=== PATIENT | male | born 1995 | race American Indian/Alaskan Native ===

== ENCOUNTER 2021-07-05 17:07 | Emergency (ER) | payer SELFPAY | END 2021-07-05 20:00 | LOC: ED 17:07 | DX: N20.0 Calculus of kidney (principal); Z53.21 Procedure and treatment not carried out due to patient leaving prior to being seen by health care provider ==

== ENCOUNTER 2021-07-06 19:22 | Emergency (ER) | payer SELFPAY ==
[2021-07-06] MEDS ORDERED: IPRATROPIUM/ALBUTEROL SULFATE 3 ML AMPUL.NEB IH ONE (20:24)
== END 2021-07-06 21:00 | disposition left against medical advice (07) ==
LOC: ED 19:22
DX: N23 Unspecified renal colic (principal); Z53.21 Procedure and treatment not carried out due to patient leaving prior to being seen by health care provider

== ENCOUNTER 2021-07-14 13:56 | Emergency (ER) | payer SELFPAY ==
[2021-07-14 16:14] VITALS: BP 122/89
--- NOTE | 2021-07-14 17:32 | Emergency Department Report ---
ED General Adult HPI - General Chief complaint: Nosebleed Stated complaint: DEHYDRATION Time Seen by Provider: 07/14/21 16:17 Source: patient Mode of arrival: Ambulatory Limitations: No Limitations - History of Present Illness Initial comments: This is a 25-year-old male nontoxic, well nourished in appearance, no acute signs of distress presents to the ED with c/o of nosebleed intermittently times several days. Patient denies any trauma or injuries. Patient stated he needs IV fluids because he believes he is dehydrated due to this. Patient otherwise denies any complaints or symptoms. Currently denies any episodes of nosebleeds today. Patient denies any headache, stiff neck, nausea, vomiting, chest pain, shortness of breath, numbness or tingling. Patient denies any allergies or significant past medical history. -: days(s) Severity scale (0 -10): 0 Improves with: none Worsens with: none Associated Symptoms: denies other symptoms. denies: confusion, chest pain, cough, diaphoresis, fever/chills, headaches, loss of appetite, malaise, nausea/vomiting, rash, seizure, shortness of breath, syncope, weakness Treatments Prior to Arrival: none - Related Data Allergies Allergy/AdvReac Type Severity Reaction Status Date / Time No Known Allergies Allergy Unverified 07/14/21 16:10 ED Review of Systems ROS: Stated complaint: DEHYDRATION Other details as noted in HPI Comment: All other systems reviewed and negative Constitutional: denies: chills, fever Eyes: denies: eye pain, eye discharge, vision change ENT: epistaxis. denies: ear pain, throat pain, dental pain, hearing loss, congestion Respiratory: denies: cough, shortness of breath, wheezing Cardiovascular: denies: chest pain, palpitations Endocrine: no symptoms reported Gastrointestinal: denies: abdominal pain, nausea, diarrhea Genitourinary: denies: urgency, dysuria Musculoskeletal: denies: back pain, joint swelling, arthralgia Skin: denies: rash, lesions Neurological: denies: headache, weakness, paresthesias Psychiatric: denies: anxiety, depression Hematological/Lymphatic: denies: easy bleeding, easy bruising ED Past Medical Hx - Past Medical History Previous Medical History?: No - Surgical History Past Surgical History?: No ED Physical Exam - General Limitations: No Limitations General appearance: alert, in no apparent distress - Head Head exam: Present: atraumatic, normocephalic - Eye Eye exam: Present: normal appearance - ENT ENT exam: Present: normal exam, normal orophraynx, other (no epistaxis present. No nasal polyps or hematoma noted on exam.) - Neck Neck exam: Present: normal inspection, full ROM. Absent: lymphadenopathy - Respiratory Respiratory exam: Present: normal lung sounds bilaterally. Absent: respiratory distress, wheezes, rales, rhonchi, stridor, chest wall tenderness, accessory muscle use, decreased breath sounds, prolonged expiratory - Cardiovascular Cardiovascular Exam: Present: regular rate, normal rhythm, normal heart sounds. Absent: bradycardia, tachycardia, irregular rhythm, systolic murmur, diastolic murmur, rubs, gallop - Extremities Exam Extremities exam: Present: full ROM - Back Exam Back exam: Present: full ROM - Neurological Exam Neurological exam: Present: alert, oriented X3, normal gait - Psychiatric Psychiatric exam: Present: normal affect, normal mood - Skin Skin exam: Present: warm, dry, intact, normal color. Absent: rash ED Course Vital Signs 07/14/21 16:13 Temperature 98.8 F Pulse Rate 77 Respiratory 20 Rate Blood Pressure 122/89 O2 Sat by Pulse 99 Oximetry - Reevaluation(s) Reevaluation #1: 07/14/21 17:31 Patient is speaking in full sentences with no signs of distress noted. ED Medical Decision Making - Medical Decision Making 25-year-old male that presents with epistaxis. Patient is stable and was examined by me. Labs has been ordered but as per rn admission, patient was nowhere to be found. It is my impression that patient eloped without receiving blood work and further evaluation for appropriate disposition. Critical care attestation.: If time is entered above; I have spent that time in minutes in the direct care of this critically ill patient, excluding procedure time. ED Disposition Clinical Impression: Epistaxis Disposition: 07 LEFT AWOL/ELOPED Is pt being admited?: No Condition: Undetermined Time of Disposition: 17:32
== END 2021-07-14 18:00 | disposition left against medical advice (07) ==
LOC: ED 13:56
DX: R04.0 Epistaxis (principal); E86.0 Dehydration
CPT/HCPCS: 99281